=== PATIENT | female | born 1995 | race Caucasian/White ===

== ENCOUNTER 2016-04-22 20:44 | Emergency (ER) | payer BC ==
[2016-04-22] MEDS ORDERED: PHENAZOPYRIDINE 100 MG TAB ONE (22:13)
[2016-04-22] MEDS ORDERED: Ibuprofen 400 MG TAB ONE (22:13)
== END 2016-04-22 22:25 | disposition home or self-care (01) ==
LOC: ER 20:44
DX: N30.00 Acute cystitis without hematuria (principal)
CPT/HCPCS: 81001; 87088